=== PATIENT | female | born 1980 ===

== ENCOUNTER 2017-09-14 08:25 | Day surgery (SDC) | payer OTHER ==
[~2017-09-14 08:25] MED LIST: COZAAR50 MG PO; PROTONIX40 MG PO
[2017-09-14] MEDS ORDERED: CODE1TAB37 PO (13:13)
== END 2017-09-14 15:45 | disposition home or self-care (01) ==
LOC: CIR.AMB 08:25
DX: Z30.2 Encounter for sterilization (principal); Z64.1 Problems related to multiparity

== ENCOUNTER 2021-10-28 08:43 | Day surgery (SDC) | payer OTHER ==
[~2021-10-28] VITALS: Ht 165.1 cm; Wt 113.4 kg
[~2021-10-28 08:43] MED LIST changes: +CODE1TAB37 PO; +LOSARTAN-HCTZ1 EAC2 PO
[2021-10-28] MEDS ORDERED: NAPR500T14 PO (11:53)
[2021-10-28] MEDS ORDERED: MORGIDOX100 MG PO (11:53)
== END 2021-10-28 16:35 | disposition home or self-care (01) ==
LOC: CIR.AMB 08:43
PROVIDERS: ATTEND Obstetrics & Gynecology
DX: N84.0 Polyp of corpus uteri (principal); Z20.822 Contact with and (suspected) exposure to COVID-19; I10 Essential (primary) hypertension

== ENCOUNTER 2024-06-05 05:00 | Day surgery (SDC) | payer OTHER ==
[2024-05-30 12:58] VITALS: BP 138/79
[~2024-06-05] VITALS: Ht 165.1 cm; Wt 104.3 kg
[~2024-06-05 05:00] MED LIST changes: +CRESTOR40 MG; +MORGIDOX100 MG PO; +NAPR500T14 PO
[2024-06-05] MEDS ORDERED: HEMOSTATIC MATRIX 1 KIT KIT TOP ONE (07:11)
[2024-06-05] MEDS ORDERED: BUPIVACAINE HCL/MPF 0.5% 30ML VIAL ONE (07:11)
[2024-06-05] MEDS ORDERED: CEFTRIAXONE SODIUM 2,000 MG VIAL ONE (07:11)
[2024-06-05] MEDS ORDERED: POVIDONE-IODINE 118 ML BOTT TOP ONE (07:11)
[2024-06-05] MEDS ORDERED: DIBUCAINE 30 GM TUBE ONE (07:11)
[2024-06-05] MEDS ORDERED: LIDOCAINE HCL 1%/EPINEPHRINE 20ML VIAL IJ ONE (07:11)
[2024-06-05] MEDS ORDERED: METRONIDAZOLE/SODIUM CHLORIDE 500 MG/100 ML PIGGYBACK IV ONE (07:12)
[2024-06-05] MEDS ORDERED: HYDROGEN PEROXIDE 473 ML BOTTLE TOP ONE (08:01)
[2024-06-05] MEDS ORDERED: PERCOCET 5-3251 EACH PO (09:00)
[2024-06-05] MEDS ORDERED: CELECOXIB200 MG PO (09:00)
[2024-06-05] MEDS ORDERED: NEURONTIN300 MG PO (09:00)
== END 2024-06-05 11:45 | disposition home or self-care (01) ==
LOC: CIR.AMB 05:00
PROVIDERS: ATTEND Surgery
DX: K60.311 Anal fistula, simple, initial (principal); K60.1 Chronic anal fissure; I10 Essential (primary) hypertension; E78.00 Pure hypercholesterolemia, unspecified; E66.9 Obesity, unspecified

== ENCOUNTER 2024-12-04 09:00 | Day surgery (SDC) | payer OTHER ==
[2024-11-26 11:55] VITALS: BP 151/82
[~2024-12-04] VITALS: Ht 165.1 cm; Wt 111.1 kg
[~2024-12-04 09:00] MED LIST changes: +CELECOXIB200 MG PO; +DIBUCAINE 30 GM TUBE ONE; +HYDRODIURIL12.5 MG PO; +LIDOCAINE HCL 1%/EPINEPHRINE 20ML VIAL IJ ONE; +NEURONTIN300 MG PO; +NORVASC5 MG PO; +PERCOCET 5-3251 EACH PO; +POVIDONE-IODINE 118 ML BOTT TOP ONE
[2024-12-04] MEDS ORDERED: METRONIDAZOLE/SODIUM CHLORIDE 500 MG/100 ML PIGGYBACK IV ONE (10:25)
[2024-12-04] MEDS ORDERED: CEFTRIAXONE SODIUM 2,000 MG VIAL ONE (10:25)
[2024-12-04] MEDS ORDERED: HEMOSTATIC MATRIX 1 KIT KIT TOP ONE (11:45)
[2024-12-04] MEDS ORDERED: CELECOXIB200 MG PO (12:53)
[2024-12-04] MEDS ORDERED: PERCOCET 5-3251 EACH PO (12:54)
[2024-12-04] MEDS ORDERED: NEURONTIN300 MG PO (12:54)
[2024-12-04] MEDS ORDERED: INTESTINEX680 M1 PO (12:54)
== END 2024-12-04 16:40 | disposition home or self-care (01) ==
LOC: CIR.AMB 09:00
PROVIDERS: ATTEND Surgery
DX: K60.321 Anal fistula, complex, initial (principal); L92.9 Granulomatous disorder of the skin and subcutaneous tissue, unspecified